=== PATIENT | female | born 1945 | race Caucasian/White ===

== ENCOUNTER 2016-09-10 14:01 | Inpatient (IN) | payer OTHER ==
[2016-09-23] MEDS ORDERED: LOPERAMIDE HCL 2 MG CAP PO PRN (16:51)
[2016-09-23] MEDS: traMADol 50 MG TAB PO PRN (17:46)
[2016-09-23] MEDS: ACETAMINOPHEN 325 MG TAB PO SCH (17:47)
--- NOTE | 2016-09-23 18:21 | GHP ---
[f rep st] HISTORY AND PHYSICAL Post-Admission Physician Evaluation and Rehabilitation Treatment Plan DATE OF ADMISSION: 09/23/2016 REFERRING FACILITY: [facility] REFERRING PHYSICIAN: Dr. Singletary REHABILITATION DIAGNOSIS: Debility status post fall with subdural hematoma and multiple orthopedic fractures. IMPAIRMENT GROUP: 14.2. ETIOLOGICAL DIAGNOSIS: Brain plus multiple fracture/amputation. Date of onset is 09/05/2016. HISTORY OF PRESENT ILLNESS: Mrs. Barrera had an unwitnessed fall onto a concrete floor. It was unknown whether or not she had loss of consciousness. She suffered a left frontal temporal subdural hematoma, a left zygoma fracture, a left manubrium fracture, a left distal clavicle fracture, left rib fractures #2- 5, and a comminuted left iliac bone fracture. She was evaluated at [facility]. She was followed by Neurosurgery and her intracranial bleed did not require surgical evacuation. Her hospital course was complicated by anemia, pain, nausea, and vomiting. She has left upper extremity weightbearing limitations. She was admitted to [facility] on 09/12/2016 as she did not have enough activity tolerance for a more intensive rehabilitation situation. Since then, she has had better pain control and improved activity tolerance and has been authorized by her insurance for admission to acute inpatient rehabilitation facility with a goal of returning to home. STUDIES AND LABS DURING HER HOSPITALIZATION: Imaging showed the injuries as described above. There was a lumbar spine MRI done for a history of sciatica and recurrent sciatic symptoms which showed L5-S1 right-sided foraminal stenosis due to bone sparing and disk material in the lower anterior foramen and facet migration dorsally. Hip x-ray ruled out fracture of the right hip. Urinalysis showed trace ketones, 1+ blood, and 2+ glucose, but was negative for infection. CBC initially had close to normal hemoglobin and hematocrit but an elevated white blood cell count at 19.99. Subsequently after hydration she became anemic. On the day of her discharge, 09/12/2016, her hemoglobin was 9.5 and her hematocrit was 28.2. Coagulation studies revealed normal PT and INR. Serum chemistry revealed normal renal function and electrolytes. Her albumin was initially normal at 4 but decreased to 3.0 on 09/09/2016. She had a corresponding decrease in her serum calcium. Blood sugars were initially elevated but subsequently normalized. PRECAUTIONS: She is a fall risk. She is nonweightbearing on the left upper extremity. ACTIVE COMORBIDITIES: She has no active tier 1, tier 2, or tier 3 comorbidities. PAST MEDICAL HISTORY: 1. Osteoporosis. 2. PTSD. 3. Vitamin D deficiency. 4. Noncardiac chest pain. 5. Sciatica on the right leg. PAST SURGICAL HISTORY: She has had a tonsillectomy. MEDICATIONS: Pre-hospital medications: I do not have a full list of medications she was taking prior to her injury. She was on multiple supplements. Medications prior to current admission: 1. Tramadol. 2. Ondansetron. 3. Acetaminophen. 4. Bisacodyl p.r.n. 5. Loperamide p.r.n. 6. Polyethylene glycol. 7. Gabapentin. 8. Lidocaine patch. 9. Erythromycin eye ointment to the right eye. 10. Cannabidiol ALLERGIES: There are no known drug allergies. FAMILY HISTORY: Noncontributory. PSYCHOSOCIAL HISTORY: She is and remarried. She lives with her family. 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 She is a lifelong nonsmoker and nondrinker. REVIEW OF SYSTEMS: She currently reports that her most painful area is the right sciatic pain which she rates as a 6/10. She additionally has left clavicular pain which she rates at a 5/10. She denies cough or dyspnea but reports that she had hypoxia. Her family has provided a pulse oximeter and she reports that her oxygenation has been as low as 67, but it has been better for the latter part of her stay at the correction facility. She had constipation initially which was treated with laxatives. Then she had diarrhea which has been improving especially over the last day. She denies chest pain or palpitations. Her appetite is improving. She denies vomiting though there was vomiting initially in the hospital before her discharge to the correction facility. She denies dysuria or urinary frequency. She denies joint pain or joint swelling. She denies skin rash or skin breakdown. She is in good spirits. She reports that she has had cognitive fatigue especially in the afternoon and at times gets a headache particularly above the left eye. There is no nausea or vomiting associated with the headache. Other than that, a 10- point review of systems is negative. PHYSICAL EXAM: GENERAL: This is a pale, elderly woman sitting in a wheelchair , cooperative, and in no acute distress. HEENT: Extraocular movements are intact. Pupils are equal, round, and reactive to light and accommodation. Mucous membranes are moist. Dentition is in good condition. NECK: Supple. HEART: There is a regular rate and rhythm with no murmurs, rubs, or gallops. LUNGS: Clear to auscultation bilaterally. ABDOMEN: Soft. Minimally tender at the left lower quadrant. Nondistended with normoactive bowel sounds and no hepatosplenomegaly. EXTREMITIES: There is no cyanosis, clubbing, or edema. Radial and dorsalis pedis pulses are 2+ bilaterally. NEUROLOGIC: She is alert and oriented x3. She is tangential and distractible and she has some word finding difficulties. Cranial nerves 2-12 are grossly intact. There is no focal weakness though full muscle testing was not done of the hip flexors or left upper extremity due to fractures. Sensation is intact to light touch. Deep tendon reflexes are 3+ bilaterally at the biceps, patella and Achilles tendons. There is a minor resting tremor more prominent on the right than the left upper extremity. SKIN: Warm and dry. Current level of function per the preadmission screen. Regarding diet, feeding , and swallowing, she was on regular diet and had supervision. Grooming was done with supervision. Bathing required assistance. Dressing the upper body was accomplished with standby assistance and the lower body with minimal assistance. Toileting required minimal assistance. Bed mobility required minimal assistance. Transfers were accomplished with contact guard assist. She was using a catia walker. Balance was good minus to fair plus. Endurance was fair. She was able to ambulate 60 feet using a catia walker with contact guard assist. Cognition was tested with the SLUMS on which she scored 30/30. Speech therapy was focusing on issues of medication administration and higher level of function. IMPRESSION: Mrs. Capri Barrera is a 70-year-old woman with known osteoporosis which was characterized as severe on a dual energy x-ray absorptiometry study on 01/27/2015. She apparently has been compliant with vitamin D supplementation and other supplements but is generally reluctant to have allopathic medical treatments and so has not been on specific antiresorptive therapy. She has had a previous fall and fracture and she had another fall and multiple fractures which brought her to [facility] on 2015. Additionally, she suffered a subdural hemorrhage which was nonsurgical. During her hospitalization though she was stabilized with regard to pain, nausea , vomiting, and no surgical intervention was needed. She was not able to tolerate sufficient activity to be candidate for inpatient rehabilitation. She has been at a correction facility from 09/12 through 09/23 where she has had improvement in function and in pain control and now is appropriate for inpatient rehabilitation. She will benefit from intensive physical and occupational therapy to optimize her mobility and function with regard to activities of daily living and for speech therapy regarding cognitive concerns status post traumatic brain injury. Hospital problems included pain management, nausea, and vomiting, and at the shelter she has had issues with constipation and then diarrhea following treatment with laxatives. There apparently also was treatment for an eye infection with erythromycin eye ointment but currently she has no symptoms in the right eye. She had anemia and protein calorie malnutrition. Her goal is to discharge home with her family, most likely to her son's home, and with supportive services. For a safe discharge, it is anticipated that she will achieve independence with eating, grooming, and bed mobility. She will need to achieve modified independence for transfers and ambulation using least restrictive device. She may continue to require assistance for dressing and bathing until she has full use of the left upper extremity. It is hoped that she will be able to independently manage her medications. It is expected she will require assistance for shopping and household management. She will have therapy with physical therapy, occupational therapy, and speech therapy for 60 minutes for each discipline per day on 5-7 days of the week. Her expected duration of stay is 7-10 days. It is expected that upon discharge she will continue to benefit from home health services including nursing, occupational therapy, and physical therapy. ASSESSMENT AND PLAN: 1. Debility status post fall, multiple orthopedic fractures, and left brain subdural hematoma. Physical and occupational therapy to optimize mobility and activities of daily living. 2. 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 Speech and language pathology to assess and treat. 3. Pain management for orthopedic fractures including left clavicle, left manubrium, left ribs, and pelvic fracture. She has been reticent to use full dose of tramadol. She reports her pain level is 5/10 in the left clavicle and 6 /10 in the right lower extremity and considers that a pain level of 4/10 would be adequate for her to participate in therapies and sleep. She will be continued on tramadol 50 mg p.o. q.4 hours p.r.n. as well as acetaminophen 650 mg q.6 hours scheduled. She will have pain assessment and medications will be adjusted to achieve adequate pain control. 4. Right sciatic pain with corresponding foraminal stenosis seen on MRI. She was started on a very small dose of gabapentin at 100 mg twice daily at the shelter. I will increase this to 300 mg 3 times daily. She also had a lidocaine patch on the right thigh. She is not clear that it made any difference and I will discontinue the lidocaine patch. 5. Constipation followed by diarrhea. She will be observed. Laxatives will be on a p.r.n. basis including polyethylene glycol and bisacodyl suppository. If she continues to have diarrhea, loperamide will remain available and further investigations will be done as to the etiology of the diarrhea. 6. Osteoporosis. For now she will have calcium and vitamin D supplementation and she can follow up with primary care or with Endocrinology after discharge for more definitive antiresorptive therapy. 7. Conjunctivitis. Was treated at the shelter with erythromycin ophthalmic ointment. She is currently asymptomatic and this will not be continued. 8. Anxiety and posttraumatic stress disorder. She is not on any pharmacotherapy. She will be observed. She requested visits from her psychotherapist and she was informed that anyone is free to visit her whom she would like to see. Consider intervention by COCKTAIL WAITRESS on the unit should her emotional state interfere with her ability to participate in therapy. 9. Anemia and protein calorie malnutrition as well vitamin D deficiency. Labs will be checked regarding these issues to assess her current status. There will be a dietary consult as well. /[id number]/MODL MTDD
[2016-09-23] MEDS: CALCIUM CARB W/VIT D 500 MG TAB PO SCH (21:57)
[2016-09-23] MEDS: GABAPENTIN 300 MG CAP PO SCH (21:57)
[2016-09-24] MEDS: ACETAMINOPHEN 325 MG TAB PO SCH ×5 (01:44→23:57)
[2016-09-24] MEDS: CALCIUM CARB W/VIT D 500 MG TAB PO SCH ×2 (08:19→20:10)
[2016-09-24] MEDS: GABAPENTIN 300 MG CAP PO SCH ×3 (08:19→21:44)
[2016-09-24] MEDS: CHOLECALCIFEROL VIT D3 2,000 UNITS TAB/CAP PO SCH (08:19)
[2016-09-24] MEDS: traMADol 50 MG TAB PO PRN ×3 (08:28→20:14)
[2016-09-24 08:50] LABS: HEMATOCRIT 34.1 % (38.0-47.0); LIPEMIA HEMOLYSIS FLAG 80 (0-99); MEAN CELL HEMOGLOBIN 30.9 pg (27.9-34.1); MEAN CELL HEMOGLOBIN CONCENTR. 32.3 g/dL (32.4-36.7); MEAN CELL VOLUME 95.8 fL (81.5-99.8); PLATELET COUNT 467 10^3/uL (150-400); RED BLOOD CELL COUNT 3.56 10^6/uL (4.18-5.33); RED CELL DISTRIBUTION WIDTH 14.8 % (11.5-15.2)
[2016-09-24 09:07] LABS: ALANINE AMINOTRANSFERASE 49 IU/L (9-52); ALBUMIN 3.8 g/dL (3.5-5.0); ALKALINE PHOSPHATASE 222 IU/L (38-126); ANION GAP 12 mEq/L (8-16); ASPARTATE AMINOTRANSFERASE 45 IU/L (14-46); BILIRUBIN,TOTAL 0.6 mg/dL (0.1-1.4); CALCIUM 9.8 mg/dL (8.5-10.4); CARBON DIOXIDE 26 mEq/l (22-31); CHLORIDE 104 mEq/L (97-110); CREATININE 0.6 mg/dL (0.6-1.0); GLOMERULAR FILTRATION RATE > 60; GLUCOSE 77 mg/dL (70-100); POTASSIUM 4.7 mEq/L (3.5-5.2); SODIUM 142 mEq/L (134-144); TOTAL PROTEIN 6.8 g/dL (6.3-8.2)
--- NOTE | 2016-09-24 09:11 | SOAPPROG ---
SOAP Progress Note Assessment/Plan: Assessment: 70 yo F who suffered multiple fracture and SDH is an unwitnessed fall 2015, with osteoporosis: * Debility status post fall, multiple orthopedic fractures, and left brain subdural hematoma. Physical and occupational therapy to optimize mobility and activities of daily living. 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 Speech and language pathology to assess and treat. * Pain management for orthopedic fractures including left clavicle, left manubrium, left ribs, and pelvic fracture. Adequate pain control with tramadol 50 mg p.o. q.4 hours p.r.n. as well as acetaminophen 650 mg q.6 hours scheduled. She will have pain assessment and medications will be adjusted to achieve adequate pain control. * Right sciatic pain with corresponding foraminal stenosis seen on MRI. Improved on 300 mg 3 times daily, increased from 100 mg BID dose at the SNF prior to admission. * Constipation followed by diarrhea. She will be observed. Laxatives will be on a p.r.n. basis including polyethylene glycol and bisacodyl suppository. If she continues to have diarrhea, loperamide will remain available and further investigations will be done as to the etiology of the diarrhea. * Osteoporosis. Adequate vitamin D supplementation on labs 09/24/16. Discussed initiating bisphosphonate; she prefers to discuss it with PCP. * Anxiety and posttraumatic stress disorder. She is not on any pharmacotherapy. She will be observed. She requested visits from her psychotherapist and she was informed that anyone is free to visit her whom she would like to see. Consider intervention by RETURNS SUPERVISOR on the unit should her emotional state interfere with her ability to participate in therapy. * Anemia, improving on labs 09/24/16. Repeat head CT and follow-up with Neurosurgery Dr. Nolasco week of 09/26/16. PCP is Praveen Baron. 09/24/16 10:18 Subjective: Slept well and sciatic pain improved on increased gabapentin dose. Has not noted any adverse effects. No f/c, cough, dyspnea, n/v/c/d. Objective: Vital Signs Temp Pulse Resp BP Pulse Ox 36.4 C 58 L 14 133/67 H 96 09/24/16 06:51 09/24/16 06:51 09/24/16 06:51 09/24/16 06:51 09/24/16 06:51 Laboratory Results 09/24/16 06:00 09/24/16 06:00 09/23/16 09/24/16 09/25/16 05:59 05:59 05:59 Output Total 1300 300 Balance -1300 -300 Physical Exam - Physical Exam General Appearance: WD/WN, alert, no apparent distress, thin Respiratory: normal breath sounds, No crackles, No rhonchi, No wheezing Cardiac/Chest: regular rate, rhythm, No edema Skin: normal color, warm/dry Neuro/Psych: no motor/sensory deficits, alert, normal mood/affect, oriented x 3 ICD10 Worksheet Patient Problems: Problems Problem Status Diagnosed Anemia due to blood loss, acute Acute Chest pain Acute Clavicle fracture Acute Fall (on) (from) other stairs and steps, initial encounter Acute Pelvis fracture Acute Rib fracture Acute Subdural hemorrhage Acute
[2016-09-24 09:23] LABS: VITAMIN D 25-HYDROXY TOTAL 58.3 ng/mL (30-100)
[2016-09-24 10:38] LABS: CALCIUM 9.9 ng/dL (8.5-10.4); CREATININE 0.6 mg/dL (0.6-1.0)
[2016-09-24 10:47] LABS: PTH INTACT NO MINERALS 27.9 pg/ml (10.8-79.4)
[2016-09-25] MEDS: traMADol 50 MG TAB PO PRN ×4 (02:25→21:10)
[2016-09-25] MEDS: ACETAMINOPHEN 325 MG TAB PO SCH ×4 (05:59→23:45)
[2016-09-25] MEDS: CHOLECALCIFEROL VIT D3 2,000 UNITS TAB/CAP PO SCH (09:32)
[2016-09-25] MEDS: GABAPENTIN 300 MG CAP PO SCH ×3 (09:32→21:16)
[2016-09-25] MEDS: CALCIUM CARB W/VIT D 500 MG TAB PO SCH ×2 (09:32→21:15)
--- NOTE | 2016-09-25 12:58 | SOAPPROG ---
SOAP Progress Note Assessment/Plan: Assessment: 70 yo F who suffered multiple fracture and SDH is an unwitnessed fall 2015, with osteoporosis: * Debility status post fall, multiple orthopedic fractures, and left brain subdural hematoma. Physical and occupational therapy to optimize mobility and activities of daily living. 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 Speech and language pathology to assess and treat. Marked emotional lability. * Pain management for orthopedic fractures including left zygoma, left clavicle , left manubrium, left ribs, and left pelvic fracture. Adequate pain control with tramadol 50 mg p.o. q.4 hours p.r.n. as well as acetaminophen 650 mg q.6 hours scheduled. She will have pain assessment and medications will be adjusted to achieve adequate pain control. * Right sciatic pain with corresponding foraminal stenosis seen on MRI, R>L. No benefit on Neurontin 300 mg TID, increased from 100 mg BID dose at the SNF prior to admission. * Constipation followed by diarrhea. She will be observed. Laxatives will be on a p.r.n. basis including polyethylene glycol and bisacodyl suppository. If she continues to have diarrhea, loperamide will remain available and further investigations will be done as to the etiology of the diarrhea. * Osteoporosis. Adequate vitamin D supplementation on labs 09/24/16. Discussed initiating bisphosphonate; she prefers to discuss it with PCP. * Anxiety and posttraumatic stress disorder. She is not on any pharmacotherapy. She will be observed. She requested visits from her psychotherapist and she was informed that anyone is free to visit her whom she would like to see. Consider intervention by MANAGER PAPER on the unit should her emotional state interfere with her ability to participate in therapy. * Anemia, improving on labs 09/24/16. Repeat head CT and follow-up with Neurosurgery Dr. Nolasco week of 09/26/16. PCP is Praveen Baron. Plan: Cont Dr Ryan rehab treatment plan 09/25/16 13:09 Subjective: Still with significant R buttock/sciatic like pain, impeding rest. No significant back pain. L jaw pain and clicking L Clavicle/rib pain and limited mobility Tearfull No F/C/CP/SOB/N/V Objective: Vital Signs Temp Pulse Resp BP Pulse Ox 36.6 C 57 L 14 118/62 93 09/25/16 06:30 09/25/16 09:28 09/25/16 06:30 09/25/16 09:28 09/25/16 09:28 Laboratory Results 09/24/16 06:00 09/24/16 06:00 09/24/16 09/25/16 09/26/16 05:59 05:59 05:59 Intake Total 100 100 Output Total 1300 750 Balance -1300 -650 100 Physical Exam - Physical Exam General Appearance: alert, mild distress EENT: other (L TMJ area pain, crepitus, restricted ROM (2/2 local trauma, fracture of L Zygomatic arch), R/O TMJ disruption) Neck: supple Respiratory: lungs clear Cardiac/Chest: regular rate, rhythm Abdomen: normal bowel sounds, soft Back: Normal inspection Skin: normal color, warm/dry, No rash Extremities: normal range of motion (markedly restricted R hip ROM, positive SLR , local soft tissue myofacial changes), No pedal edema, No calf tenderness Neuro/Psych: alert, other (no acute changes), No normal mood/affect (labile) ICD10 Worksheet Patient Problems: Problems Problem Status Diagnosed Anemia due to blood loss, acute Acute Chest pain Acute Clavicle fracture Acute Fall (on) (from) other stairs and steps, initial encounter Acute Pelvis fracture Acute Rib fracture Acute Subdural hemorrhage Acute
[2016-09-26] MEDS: ACETAMINOPHEN 325 MG TAB PO SCH ×3 (05:22→18:01)
[2016-09-26] MEDS: traMADol 50 MG TAB PO PRN ×4 (07:25→20:03)
[2016-09-26] MEDS: CHOLECALCIFEROL VIT D3 2,000 UNITS TAB/CAP PO SCH (07:25)
[2016-09-26] MEDS: GABAPENTIN 300 MG CAP PO SCH ×3 (07:25→20:04)
[2016-09-26] MEDS: CALCIUM CARB W/VIT D 500 MG TAB PO SCH ×2 (07:26→20:03)
[2016-09-26] MEDS ORDERED: LIDOCAINE 1% 5 ML SDV IF ONE (09:51)
[2016-09-26] MEDS ORDERED: TRIAMCINOLONE ACETONIDE 40 MG/ML VIAL IM ONE (09:51)
[2016-09-26] MEDS ORDERED: LIDOCAINE 1% *Not for Epidural 20 ML MDV IF ONE (10:00)
[2016-09-26] MEDS: LIDOCAINE 5% 1 EA PATCH TD SCH (10:55)
[2016-09-26] MEDS ORDERED: METHOCARBAMOL 750 MG TAB PO STA (12:19)
--- NOTE | 2016-09-26 12:19 | SOAPPROG ---
SOAP Progress Note Assessment/Plan: Assessment: 70 yo F who suffered multiple fracture and SDH is an unwitnessed fall 2015, with osteoporosis: * Debility status post fall, multiple orthopedic fractures, and left brain subdural hematoma. Physical and occupational therapy to optimize mobility and activities of daily living. * Cognitive impairment/Anxiety following traumatic brain injury. Speech and language pathology to assess and treat. Marked emotional lability. * Right sciatic pain with corresponding foraminal stenosis seen on MRI, R>L. No benefit on Neurontin 300 mg TID, increased from 100 mg BID dose at the SNF prior to admission. * Pain management for orthopedic fractures including left zygoma, left clavicle , left manubrium, left ribs, and left pelvic fracture. In-adequate pain control with tramadol 50 mg p.o. q.4 hours p.r.n. as well as acetaminophen 650 mg q.6 hours scheduled, No benefit on Neurontin 300 mg TID. No benefit with R Trochanteric bursa injection. Trial low dose robaxin, on schedule. She will have pain assessment and medications will be adjusted to achieve adequate pain control. * Constipation followed by diarrhea. She will be observed. Laxatives will be on a p.r.n. basis including polyethylene glycol and bisacodyl suppository. If she continues to have diarrhea, loperamide will remain available and further investigations will be done as to the etiology of the diarrhea. * Osteoporosis. Adequate vitamin D supplementation on labs 09/24/16. Discussed initiating bisphosphonate; she prefers to discuss it with PCP. * Anxiety and posttraumatic stress disorder. She is not on any pharmacotherapy. She will be observed. She requested visits from her psychotherapist and she was informed that anyone is free to visit her whom she would like to see. Consider intervention by POWER PLANT OPERATORS SUPERVISOR on the unit should her emotional state interfere with her ability to participate in therapy. * Anemia, improving on labs 09/24/16. Repeat head CT and follow-up with Neurosurgery Dr. Nolasco week of 09/26/16. PCP is Praveen Baron. Plan: Cont Dr Ryan rehab treatment plan 09/26/16 12:15 09/26/16 12:17 Subjective: Very limited by Severe R posterolateral hip pain. Less significant R LBP. The L jaw, shoulder, ribs and pelvis less problematic, relative to the R hip No F/C/CP/SOB/N/V/D/C Objective: Vital Signs Temp Pulse Resp BP Pulse Ox 36.8 C 54 L 16 107/61 92 09/26/16 06:34 09/26/16 06:34 09/26/16 06:34 09/26/16 06:34 09/26/16 06:34 Laboratory Results 09/24/16 06:00 09/24/16 06:00 09/25/16 09/26/16 09/27/16 05:59 05:59 05:59 Intake Total 100 300 118 Output Total 750 300 Balance -650 0 118 Physical Exam - Physical Exam General Appearance: alert, moderate distress Neck: supple Respiratory: lungs clear Cardiac/Chest: regular rate, rhythm Abdomen: normal bowel sounds, soft Extremities: No normal range of motion (limited B hip, knee, SLR and L shoulder ROM), No pedal edema, No calf tenderness Neuro/Psych: alert, normal mood/affect, oriented x 3, motor weakness, cognition abnormalities, other (marked anxiety 2/2 pain) ICD10 Worksheet Patient Problems: Problems Problem Status Diagnosed Anemia due to blood loss, acute Acute Chest pain Acute Clavicle fracture Acute Fall (on) (from) other stairs and steps, initial encounter Acute Pelvis fracture Acute Rib fracture Acute Subdural hemorrhage Acute
[2016-09-26] MEDS: POLYETHYLENE GLYCOL 3350 17 GM PKT PO PRN (15:52)
[2016-09-26] MEDS: METHOCARBAMOL 500 MG TAB PO SCH ×2 (15:52→20:04)
[2016-09-27] MEDS: ACETAMINOPHEN 325 MG TAB PO SCH ×4 (00:17→16:45)
[2016-09-27] MEDS: traMADol 50 MG TAB PO PRN ×6 (00:17→20:02)
[2016-09-27] MEDS: LIDOCAINE 5% 1 EA PATCH TD SCH ×3 (00:18→21:30)
[2016-09-27] MEDS: POLYETHYLENE GLYCOL 3350 17 GM PKT PO PRN (05:24)
[2016-09-27] MEDS: CALCIUM CARB W/VIT D 500 MG TAB PO SCH ×2 (08:46→21:29)
[2016-09-27] MEDS: CHOLECALCIFEROL VIT D3 2,000 UNITS TAB/CAP PO SCH (08:47)
[2016-09-27] MEDS: METHOCARBAMOL 500 MG TAB PO SCH ×3 (08:47→21:29)
[2016-09-27] MEDS: GABAPENTIN 300 MG CAP PO SCH (08:47)
--- NOTE | 2016-09-27 14:38 | PDOREHIP ---
Admission [facility] - Admission - 3 Day Assessment Period Admission Date/Day 1: 09/23/16 Day 2: 09/24/16 Day 3: 09/25/16 - Active Diagnoses Comorbidities and Co-existing Conditions at Admission: 26977. None of the Above - Skin Conditions Unhealed Pressure Ulcer (1 or more/Stage 1 or >)-Admission: 0. No
--- NOTE | 2016-09-27 14:50 | SOAPPROG ---
SOAP Progress Note Assessment/Plan: Assessment: 70 yo F who suffered multiple fracture and SDH is an unwitnessed fall 2015, with osteoporosis: * Debility status post fall, multiple orthopedic fractures, and left brain subdural hematoma. Initial FIM 77 on 09/27/16. Walked 60' with hemiwalker. LB dressing min - mod A; bathing min A. Continue physical and occupational therapy to optimize mobility and activities of daily living. * Cognitive impairment. Mild word-finding difficulty; mod deficits to exec fn, working memory, attention, problem solving, speed of processing. Continue GRAVITY PROSPECTING OPERATOR. * Pain management for orthopedic fractures including left clavicle, left manubrium, left ribs, and pelvic fracture. Adequate pain control. * Right sciatic pain with corresponding foraminal stenosis seen on MRI. Increase gabapentin form 300 mg 3 times daily to 400 mg TID. Increase tramadol from 50 mg Q 4 hours to 100 mg Q 6 hours. Encourage ambulation. * SDH. Repeat head CT per Neurosurgery scheduled for 09/28/16 and follow-up with Dr. Nolasco 09/30/16 at 11:20. * Osteoporosis. Adequate vitamin D supplementation on labs 09/24/16. Discussed initiating bisphosphonate; she prefers to discuss it with PCP. * Anxiety and posttraumatic stress disorder. She is not on any pharmacotherapy. She will be observed. She requested visits from her psychotherapist and she was informed that anyone is free to visit her whom she would like to see. Consider intervention by FERRYBOAT HELPER on the unit should her emotional state interfere with her ability to participate in therapy. * Anemia, improving on labs 09/24/16. Repeat head CT and follow-up with Neurosurgery Dr. Nolasco week of 09/26/16. PCP is Praveen Baron. Attended staffing, 15 min. D/W case mgmt, PT, OT, GRAVITY PROSPECTING OPERATOR, nursing. Unclear disposition with no home of her own in [place]. May discharge to daughter in [place]. Tentative discharge date 10/04/16. 09/27/16 15:05 Subjective: C/O R gluteal pain, radiates into posterior thigh. Worst with sitting, better standing or supine. Improved with soft tissue work per PT yesterday, worse after soft tissue work per PT today. Slept well. No f/c, cough, dyspnea, n/v/c/d. Objective: Vital Signs Temp Pulse Resp BP Pulse Ox 36.8 C 61 15 138/76 H 96 09/27/16 05:16 09/27/16 05:16 09/27/16 05:16 09/27/16 05:16 09/27/16 05:16 Laboratory Results 09/24/16 06:00 09/24/16 06:00 09/26/16 09/27/16 09/28/16 05:59 05:59 05:59 Intake Total 300 958 520 Output Total 300 Balance 0 958 520 - Time Spent With Patient Time Spent With Patient: Greater than 35 minutes floor time today, including more than 50% of time in coordination of care during staffing, and counseling patient. Physical Exam - Physical Exam General Appearance: WD/WN, alert, mild distress Respiratory: No respiratory distress, No accessory muscle use Skin: normal color, warm/dry Extremities: normal range of motion, No pedal edema Neuro/Psych: alert, normal mood/affect, oriented x 3, other (SLR + with pain into thigh. LLE with normal sensation, no weakness, DTRs 2+ patella, achilles.) ICD10 Worksheet Patient Problems: Problems Problem Status Diagnosed Anemia due to blood loss, acute Acute Chest pain Acute Clavicle fracture Acute Fall (on) (from) other stairs and steps, initial encounter Acute Pelvis fracture Acute Rib fracture Acute Subdural hemorrhage Acute
[2016-09-27] MEDS: GABAPENTIN 400 MG CAP PO SCH ×2 (16:44→21:30)
[2016-09-27] MEDS: BISACODYL 10 MG SUPP PR PRN (17:32)
[2016-09-28] MEDS: traMADol 50 MG TAB PO PRN ×5 (01:03→20:01)
[2016-09-28] MEDS: ACETAMINOPHEN 325 MG TAB PO SCH ×4 (01:03→18:09)
[2016-09-28] MEDS: ONDANSETRON DISINTEGRATING 4 MG TAB PO PRN ×3 (08:25→17:56)
[2016-09-28] MEDS: GABAPENTIN 400 MG CAP PO SCH ×3 (08:38→21:10)
[2016-09-28] MEDS: LIDOCAINE 5% 1 EA PATCH TD SCH ×2 (08:40→21:11)
[2016-09-28] MEDS ORDERED: METHOCARBAMOL 500 MG TAB PO PRN (09:49)
--- NOTE | 2016-09-28 09:49 | SOAPPROG ---
SOAP Progress Note Assessment/Plan: Assessment: 70 yo F who suffered multiple fractures and SDH in an unwitnessed fall 2015, with osteoporosis: * Debility status post fall, multiple orthopedic fractures, and left brain subdural hematoma. Initial FIM 77 on 09/27/16. Walked 60' with hemiwalker. LB dressing min - mod A; bathing min A. Continue physical and occupational therapy to optimize mobility and activities of daily living. * Cognitive impairment. Mild word-finding difficulty; mod deficits to exec fn, working memory, attention, problem solving, speed of processing. Continue BUSINESS SERVICES SALES AGENT. * Pain management for orthopedic fractures including left clavicle, left manubrium, left ribs, and pelvic fracture. Adequate pain control. * Right sciatic pain with corresponding foraminal stenosis seen on MRI. Increase gabapentin form 300 mg 3 times daily to 400 mg TID. Increase tramadol from 50 mg Q 4 hours to 100 mg Q 6 hours. Encourage ambulation. * Dry heaves today 09/28/16. Simplify meds: will change methocarbamol to PRN. Tramadol is the most likely med to cause N/V but she reports she has tolerated it without problems currently and in the past. Head CT today shows SDH completely cleared, so central etiology of vomiting is very unlikely. Continue ondansetron PRN. * SDH. Repeat head CT per Neurosurgery scheduled for 09/28/16 and follow-up with Dr. Nolasco 09/30/16 at 11:20. * Osteoporosis. Adequate vitamin D supplementation on labs 09/24/16. Discussed initiating bisphosphonate; she prefers to discuss it with PCP. * Anxiety and posttraumatic stress disorder. She is not on any pharmacotherapy. She will be observed. She requested visits from her psychotherapist and she was informed that anyone is free to visit her whom she would like to see. Consider intervention by STRATIGRAPHY TEACHER on the unit should her emotional state interfere with her ability to participate in therapy. * Anemia, improving on labs 09/24/16. Follow-up with Neurosurgery Dr. Nolasco week of 09/30/16. PCP is Praveen Baron. Likely SNF discharge as she has no resources for assistance locally and [place] can't take care of her. Tentative discharge date 10/04/16. 09/28/16 19:25 Subjective: Reports dryheavfes this moring. Sayss he walked to the dining room for breakfast, had onset of sciatic symptoms when she sat, and had dry heaves. Shewas given ondansetron, which has helped. She is hungry. Sciatic pain 5/10 in intensity. Denies f/c, cough/dyspnea. Objective: Vital Signs Temp Pulse Resp BP Pulse Ox 36.9 C 68 18 135/83 H 91 L 09/27/16 20:00 09/28/16 01:07 09/27/16 20:00 09/27/16 20:00 09/28/16 01:07 Laboratory Results 09/24/16 06:00 09/24/16 06:00 09/27/16 09/28/16 09/29/16 05:59 05:59 05:59 Intake Total 958 1420 Output Total 1000 Balance 958 420 Physical Exam - Physical Exam General Appearance: WD/WN, alert, no apparent distress Respiratory: No respiratory distress, No accessory muscle use Abdomen: normal bowel sounds, non-tender, soft, No distended, No guarding, No mass Skin: normal color, warm/dry Neuro/Psych: no motor/sensory deficits, alert, normal mood/affect, oriented x 3 ICD10 Worksheet Patient Problems: Problems Problem Status Diagnosed Anemia due to blood loss, acute Acute Chest pain Acute Clavicle fracture Acute Fall (on) (from) other stairs and steps, initial encounter Acute Pelvis fracture Acute Rib fracture Acute Subdural hemorrhage Acute
[2016-09-28] MEDS: METHOCARBAMOL 500 MG TAB PO SCH (10:17)
--- NOTE | 2016-09-28 12:05 | CT ---
CT Head (Without Contrast) September 28, 2016 Indication: Follow up subdural hematoma. Technique: Standard noncontrast head CT protocol utilizing 5 mm thick collimated slices and field of view of 23 cm. Dose reduction techniques were utilized. Comparison: CT head dated September 10, 2016 Findings: The subdural hematoma along the left cerebral convexity and cerebellar tentorium has comple tely resolved since 3 weeks prior. No new extra-axial blood or intraparenchymal hemorrhage. The ventr icular system is normal caliber and midline. No evidence of ischemia. The bones are normal. The paran talat sinuses are clear. Impression: 1. Completely resolved left subdural hematoma since 3 weeks prior. 2. No new intracranial hemorrhage, mass effect, or acute intracranial process.
[2016-09-28] MEDS: CALCIUM CARB W/VIT D 500 MG TAB PO SCH ×2 (15:47→21:10)
[2016-09-28] MEDS: CHOLECALCIFEROL VIT D3 2,000 UNITS TAB/CAP PO SCH (15:47)
[2016-09-29] MEDS: ACETAMINOPHEN 325 MG TAB PO SCH ×4 (00:40→17:17)
[2016-09-29] MEDS: traMADol 50 MG TAB PO PRN ×3 (00:41→11:29)
[2016-09-29] MEDS: ONDANSETRON DISINTEGRATING 4 MG TAB PO PRN ×2 (07:16→11:38)
[2016-09-29] MEDS: CHOLECALCIFEROL VIT D3 2,000 UNITS TAB/CAP PO SCH (08:41)
[2016-09-29] MEDS: CALCIUM CARB W/VIT D 500 MG TAB PO SCH ×3 (08:41→21:48)
[2016-09-29] MEDS: GABAPENTIN 400 MG CAP PO SCH ×3 (08:41→21:47)
[2016-09-29] MEDS: LIDOCAINE 5% 1 EA PATCH TD SCH ×2 (09:02→21:47)
--- NOTE | 2016-09-29 14:41 | SOAPPROG ---
SOAP Progress Note Assessment/Plan: Assessment: 70 yo F who suffered multiple fractures and SDH in an unwitnessed fall 2015, with osteoporosis: * Debility status post fall, multiple orthopedic fractures, and left brain subdural hematoma. SABRINA MIGUEL. Initial FIM 77 on 09/27/16. Walked 60' with hemiwalker. LB dressing min - mod A; bathing min A. Continue physical and occupational therapy to optimize mobility and activities of daily living. * Cognitive impairment. Mild word-finding difficulty; mod deficits to exec fn, working memory, attention, problem solving, speed of processing. Continue FEED HANDLER. * Pain management for orthopedic fractures including left clavicle, left manubrium, left ribs, and pelvic fracture. Adequate pain control. * Right sciatic pain with corresponding foraminal stenosis seen on MRI. Increased gabapentin form 300 mg 3 times daily to 400 mg TID on 09/27/16. Increased tramadol from 50 mg Q 4 hours to 100 mg Q 6 hours on 09/27/16. Encourage ambulation. * Dry heaves today 09/28/16. Simplify meds: will change methocarbamol to PRN. Improved today 09/29/16. Tramadol is the most likely med to cause N/V but she reports she has tolerated it without problems currently and in the past. Head CT 09/28/16 shows SDH completely cleared, so central etiology of vomiting is very unlikely. Continue ondansetron PRN. * SDH. Follow-up with Dr. Nolasco 09/30/16 at 11:20. * Osteoporosis. Adequate vitamin D supplementation on labs 09/24/16. Discussed initiating bisphosphonate; she prefers to discuss it with PCP. * Anxiety and posttraumatic stress disorder. She is not on any pharmacotherapy. She will be observed. She requested visits from her psychotherapist and she was informed that anyone is free to visit her whom she would like to see. Consider intervention by RESILIENT TILE INSTALLER on the unit should her emotional state interfere with her ability to participate in therapy. * Anemia, improving on labs 09/24/16. Follow-up with Neurosurgery Dr. Nolasco 09/30/16. PCP is Praveen Baron. Likely SNF discharge as she has no resources for assistance locally and daughter in [place] can't take care of her. Tentative discharge date 10/04/16. 01/05/17 14:36 Subjective: Feeling better today. NO n/v. Took ondansetron this morning to prevent. Has been active in therapies today and reports R buttock/thigh pain at 3/10, better than previous days. Slept well. No f/c, cough/dyspnea. Appetite improved. Objective: Vital Signs Temp Pulse Resp BP Pulse Ox 36.9 C 55 L 18 108/57 L 93 09/29/16 05:31 09/29/16 05:31 09/29/16 05:31 09/29/16 05:31 09/29/16 05:31 Laboratory Results 09/24/16 06:00 09/24/16 06:00 09/28/16 09/29/16 09/30/16 05:59 05:59 05:59 Intake Total 1420 1143 250 Output Total 1000 200 Balance 420 943 250 Physical Exam - Physical Exam General Appearance: WD/WN, alert, no apparent distress Respiratory: No respiratory distress, No accessory muscle use Skin: normal color, warm/dry Neuro/Psych: no motor/sensory deficits, alert, normal mood/affect, oriented x 3 , other (resting tremor R hand) ICD10 Worksheet Patient Problems: Problems Problem Status Diagnosed Anemia due to blood loss, acute Acute Chest pain Acute Clavicle fracture Acute Fall (on) (from) other stairs and steps, initial encounter Acute Pelvis fracture Acute Rib fracture Acute Subdural hemorrhage Acute
[2016-09-30] MEDS: ACETAMINOPHEN 325 MG TAB PO SCH ×4 (00:12→18:19)
[2016-09-30] MEDS: traMADol 50 MG TAB PO PRN ×4 (00:12→20:39)
[2016-09-30] MEDS: ONDANSETRON DISINTEGRATING 4 MG TAB PO PRN (07:47)
[2016-09-30] MEDS: CALCIUM CARB W/VIT D 500 MG TAB PO SCH ×3 (08:27→20:41)
[2016-09-30] MEDS: GABAPENTIN 400 MG CAP PO SCH ×3 (08:28→20:38)
[2016-09-30] MEDS: CHOLECALCIFEROL VIT D3 2,000 UNITS TAB/CAP PO SCH (08:28)
[2016-09-30] MEDS: LIDOCAINE 5% 1 EA PATCH TD SCH ×2 (08:41→20:38)
--- NOTE | 2016-09-30 09:57 | SOAPPROG ---
SOAP Progress Note Assessment/Plan: Assessment: 70 yo F who suffered multiple fractures and SDH in an unwitnessed fall 2015, with osteoporosis: * Debility status post fall, multiple orthopedic fractures, and left brain subdural hematoma. SABRINA MIGUEL. Initial FIM 77 on 09/27/16. Walked 60' with hemiwalker. LB dressing min - mod A; bathing min A. Continue physical and occupational therapy to optimize mobility and activities of daily living. * Cognitive impairment. Mild word-finding difficulty; mod deficits to exec fn, working memory, attention, problem solving, speed of processing. Continue PSS DELIVERY PROFESSIONAL. * Pain management for orthopedic fractures including left clavicle, left manubrium, left ribs, and pelvic fracture. Adequate pain control. * Right sciatic pain with corresponding foraminal stenosis seen on MRI. Increased gabapentin form 300 mg 3 times daily to 400 mg TID on 09/27/16. Increased tramadol from 50 mg Q 4 hours to 100 mg Q 6 hours on 09/27/16. Encourage ambulation. * Dry heaves today 09/28/16. Simplify meds: will change methocarbamol to PRN. Improved today 09/29/16. Tramadol is the most likely med to cause N/V but she reports she has tolerated it without problems currently and in the past. Head CT 09/28/16 shows SDH completely cleared, so central etiology of vomiting is very unlikely. Continue ondansetron PRN. * SDH. Follow-up with Dr. Nolasco today 09/30/16 at 11:20. * Osteoporosis. Adequate vitamin D supplementation on labs 09/24/16. Discussed initiating bisphosphonate; she prefers to discuss it with PCP. * Anxiety and posttraumatic stress disorder. She is not on any pharmacotherapy. She will be observed. She requested visits from her psychotherapist and she was informed that anyone is free to visit her whom she would like to see. Consider intervention by INTERACTIVE VIDEO TECHNICIAN on the unit should her emotional state interfere with her ability to participate in therapy. * Anemia, improving on labs 09/24/16. PCP is Praveen Baron. Likely SNF discharge as she has no resources for assistance locally and [place] in [place] can't take care of her. Tentative discharge date 10/04/16. 09/30/16 09:56 Subjective: Walked to breakfast then developed R buttock/hamstring pain while sitting. O/W w/out complaint, slept well, no f/c, no dyspnea/cough, no n/v/c/d. Objective: Vital Signs Temp Pulse Resp BP Pulse Ox 36.6 C 65 16 114/70 92 09/30/16 05:39 09/30/16 05:39 09/30/16 05:39 09/30/16 05:39 09/30/16 05:39 Laboratory Results 09/24/16 06:00 09/24/16 06:00 09/29/16 09/30/16 10/01/16 05:59 05:59 05:59 Intake Total 1143 1950 420 Output Total 200 1300 Balance 943 650 420 Physical Exam - Physical Exam General Appearance: WD/WN, alert, no apparent distress Respiratory: No respiratory distress, No accessory muscle use Skin: normal color, warm/dry Neuro/Psych: no motor/sensory deficits, alert, normal mood/affect, oriented x 3 ICD10 Worksheet Patient Problems: Problems Problem Status Diagnosed Anemia due to blood loss, acute Acute Chest pain Acute Clavicle fracture Acute Fall (on) (from) other stairs and steps, initial encounter Acute Pelvis fracture Acute Rib fracture Acute Subdural hemorrhage Acute
[2016-10-01] MEDS: ACETAMINOPHEN 325 MG TAB PO SCH ×5 (00:39→23:56)
[2016-10-01] MEDS: traMADol 50 MG TAB PO PRN ×2 (00:40→06:05)
[2016-10-01] MEDS: ONDANSETRON DISINTEGRATING 4 MG TAB PO PRN ×2 (08:26→17:06)
[2016-10-01] MEDS: CHOLECALCIFEROL VIT D3 2,000 UNITS TAB/CAP PO SCH (09:52)
[2016-10-01] MEDS: GABAPENTIN 400 MG CAP PO SCH ×3 (09:52→19:44)
[2016-10-01] MEDS: CALCIUM CARB W/VIT D 500 MG TAB PO SCH ×2 (09:52→19:44)
[2016-10-01] MEDS: LIDOCAINE 5% 1 EA PATCH TD SCH ×2 (09:53→19:44)
--- NOTE | 2016-10-01 15:39 | SOAPPROG ---
SOAP Progress Note Assessment/Plan: 70 yo F who suffered multiple fractures and SDH in an unwitnessed fall 2015, with osteoporosis: * Debility status post fall, multiple orthopedic fractures, and left brain subdural hematoma. SABRINA MIGUEL. Initial FIM 77 on 09/27/16. Walked 60' with hemiwalker. LB dressing min - mod A; bathing min A. Continue physical and occupational therapy to optimize mobility and activities of daily living. * Cognitive impairment. Mild word-finding difficulty; mod deficits to exec fn, working memory, attention, problem solving, speed of processing. Continue ACCOUNTS RECEIVABLE EXECUTIVE. * Pain management for orthopedic fractures including left clavicle, left manubrium, left ribs, and pelvic fracture. Adequate pain control. * Right sciatic pain with corresponding foraminal stenosis seen on MRI. Increased gabapentin form 300 mg 3 times daily to 400 mg TID on 09/27/16. Increased tramadol from 50 mg Q 4 hours to 100 mg Q 6 hours on 09/27/16. Encourage ambulation. Will add Celebrex 100BID prn (given resolution of SDH, essentially no RESENDIZ-1 effects, and persistent GI effects from tramadol) * Dry heaves today 09/28/16. Simplify meds: will change methocarbamol to PRN. Improved today 09/29/16. Tramadol is the most likely med to cause N/V but she reports she has tolerated it without problems currently and in the past. Head CT 09/28/16 shows SDH completely cleared, so central etiology of vomiting is very unlikely. Continue ondansetron PRN. * SDH. Follow-up with Dr. Nolasco today 09/30/16 at 11:20. * Osteoporosis. Adequate vitamin D supplementation on labs 09/24/16. Discussed initiating bisphosphonate; she prefers to discuss it with PCP. * Anxiety and posttraumatic stress disorder. She is not on any pharmacotherapy. She will be observed. She requested visits from her psychotherapist and she was informed that anyone is free to visit her whom she would like to see. Consider intervention by ART INSTRUCTOR on the unit should her emotional state interfere with her ability to participate in therapy. * Anemia, improving on labs 09/24/16. PCP is Praveen Baron. Likely SNF discharge as she has no resources for assistance locally and [place] can't take care of her. Tentative discharge date 10/04/16. 10/01/16 15:39 Subjective: No acute events. Notes ongoing sciatic pain that is "horrible" during therapy. Requesting additional pain meds. Still with intermittent "dry-heaving" Otherwise without complaint. Objective: Vital Signs Temp Pulse Resp BP Pulse Ox 36.8 C 55 L 15 130/71 H 97 10/01/16 06:11 10/01/16 06:11 10/01/16 06:11 10/01/16 06:11 10/01/16 06:11 Laboratory Results 09/24/16 06:00 09/24/16 06:00 09/30/16 10/01/16 10/02/16 05:59 05:59 05:59 Intake Total 1950 720 754 Output Total 1300 40 Balance 650 680 754 - Pending Discharge Pending Discharge Within 24 Hours: No Pending Discharge Within 48 Hours: No Physical Exam - Physical Exam General Appearance: alert, no apparent distress Neck: supple Respiratory: lungs clear Cardiac/Chest: regular rate, rhythm Abdomen: non-tender, soft Skin: normal color Neuro/Psych: alert, normal mood/affect, oriented x 3 ICD10 Worksheet Patient Problems: Problems Problem Status Diagnosed Anemia due to blood loss, acute Acute Chest pain Acute Clavicle fracture Acute Fall (on) (from) other stairs and steps, initial encounter Acute Pelvis fracture Acute Rib fracture Acute Subdural hemorrhage Acute
[2016-10-01] MEDS: POLYETHYLENE GLYCOL 3350 17 GM PKT PO PRN (17:12)
[2016-10-02] MEDS: ACETAMINOPHEN 325 MG TAB PO SCH ×4 (06:20→23:51)
[2016-10-02] MEDS: ONDANSETRON DISINTEGRATING 4 MG TAB PO PRN (07:53)
[2016-10-02] MEDS: CALCIUM CARB W/VIT D 500 MG TAB PO SCH ×2 (09:18→21:36)
[2016-10-02] MEDS: CHOLECALCIFEROL VIT D3 2,000 UNITS TAB/CAP PO SCH (09:19)
[2016-10-02] MEDS: LIDOCAINE 5% 1 EA PATCH TD SCH ×2 (09:19→21:35)
[2016-10-02] MEDS: GABAPENTIN 400 MG CAP PO SCH ×3 (09:19→21:35)
--- NOTE | 2016-10-02 12:35 | SOAPPROG ---
SOAP Progress Note Assessment/Plan: 70 yo F who suffered multiple fractures and SDH in an unwitnessed fall 2015, with osteoporosis: * Debility status post fall, multiple orthopedic fractures, and left brain subdural hematoma. SABRINA MIGUEL. Initial FIM 77 on 09/27/16. Walked 60' with hemiwalker. LB dressing min - mod A; bathing min A. Continue physical and occupational therapy to optimize mobility and activities of daily living. * Cognitive impairment. Mild word-finding difficulty; mod deficits to exec fn, working memory, attention, problem solving, speed of processing. Continue REALTIME REPORTER. * Pain management for orthopedic fractures including left clavicle, left manubrium, left ribs, and pelvic fracture. Adequate pain control. * Right sciatic pain with corresponding foraminal stenosis seen on MRI. Increased gabapentin form 300 mg 3 times daily to 400 mg TID on 09/27/16. Increased tramadol from 50 mg Q 4 hours to 100 mg Q 6 hours on 09/27/16. Encourage ambulation. Will add Celebrex 100BID prn (given resolution of SDH, essentially no RESENDIZ-1 effects, and persistent GI effects from tramadol), much improved * Dry heaves today 09/28/16. Simplify meds: will change methocarbamol to PRN. Improved today 09/29/16. Tramadol is the most likely med to cause N/V but she reports she has tolerated it without problems currently and in the past. Head CT 09/28/16 shows SDH completely cleared, so central etiology of vomiting is very unlikely. Continue ondansetron PRN. * SDH. Follow-up with Dr. Nolasco today 09/30/16 at 11:20. * Osteoporosis. Adequate vitamin D supplementation on labs 09/24/16. Discussed initiating bisphosphonate; she prefers to discuss it with PCP. * Anxiety and posttraumatic stress disorder. She is not on any pharmacotherapy. She will be observed. She requested visits from her psychotherapist and she was informed that anyone is free to visit her whom she would like to see. Consider intervention by RAYON WINDER on the unit should her emotional state interfere with her ability to participate in therapy. * Anemia, improving on labs 09/24/16. PCP is Praveen Baron. Likely SNF discharge as she has no resources for assistance locally and daughter in [place] can't take care of her. Tentative discharge date 10/04/16. Subjective: No acute events. Sciatica much improved today following PT and Celebrex. Denies BROWN or weakness. Objective: Vital Signs Temp Pulse Resp BP Pulse Ox 36.4 C 66 16 107/68 96 10/02/16 07:52 10/02/16 07:52 10/02/16 07:52 10/02/16 07:52 10/02/16 07:52 Laboratory Results 09/24/16 06:00 09/24/16 06:00 10/01/16 10/02/16 10/03/16 05:59 05:59 05:59 Intake Total 720 1194 354 Output Total 40 400 Balance 680 794 354 - Pending Discharge Pending Discharge Within 24 Hours: No Pending Discharge Within 48 Hours: Yes Pending Discharge Date: 10/04/16 Pending Discharge Time: 11:00 Physical Exam - Physical Exam General Appearance: alert, no apparent distress Neck: supple Respiratory: lungs clear, normal breath sounds Cardiac/Chest: regular rate, rhythm Neuro/Psych: alert, normal mood/affect, oriented x 3 ICD10 Worksheet Patient Problems: Problems Problem Status Diagnosed Anemia due to blood loss, acute Acute Chest pain Acute Clavicle fracture Acute Fall (on) (from) other stairs and steps, initial encounter Acute Pelvis fracture Acute Rib fracture Acute Subdural hemorrhage Acute
[2016-10-02] MEDS: POLYETHYLENE GLYCOL 3350 17 GM PKT PO PRN (14:16)
[2016-10-02] MEDS: BISACODYL 10 MG SUPP PR PRN (16:25)
[2016-10-03] MEDS: ACETAMINOPHEN 325 MG TAB PO SCH ×3 (06:15→17:53)
[2016-10-03] MEDS: ONDANSETRON DISINTEGRATING 4 MG TAB PO PRN (07:37)
[2016-10-03] MEDS: POLYETHYLENE GLYCOL 3350 17 GM PKT PO SCH (08:22)
[2016-10-03] MEDS: GABAPENTIN 400 MG CAP PO SCH ×3 (08:22→20:40)
[2016-10-03] MEDS: CHOLECALCIFEROL VIT D3 2,000 UNITS TAB/CAP PO SCH (08:23)
[2016-10-03] MEDS: CALCIUM CARB W/VIT D 500 MG TAB PO SCH ×2 (08:23→20:40)
[2016-10-03] MEDS: LIDOCAINE 5% 1 EA PATCH TD SCH ×2 (10:24→20:40)
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
[2016-10-04] MEDS: ACETAMINOPHEN 325 MG TAB PO SCH ×4 (01:03→21:17)
[2016-10-04] MEDS: GABAPENTIN 400 MG CAP PO SCH ×3 (09:03→21:17)
[2016-10-04] MEDS: CALCIUM CARB W/VIT D 500 MG TAB PO SCH ×2 (09:03→21:39)
[2016-10-04] MEDS: CHOLECALCIFEROL VIT D3 2,000 UNITS TAB/CAP PO SCH (09:03)
[2016-10-04] MEDS: LIDOCAINE 5% 1 EA PATCH TD SCH ×2 (09:03→21:39)
[2016-10-04] MEDS: POLYETHYLENE GLYCOL 3350 17 GM PKT PO SCH (09:12)
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
[2016-10-05] MEDS: POLYETHYLENE GLYCOL 3350 17 GM PKT PO SCH (08:28)
[2016-10-05] MEDS: ACETAMINOPHEN 325 MG TAB PO SCH ×3 (08:29→22:11)
[2016-10-05] MEDS: CHOLECALCIFEROL VIT D3 2,000 UNITS TAB/CAP PO SCH (08:32)
[2016-10-05] MEDS: GABAPENTIN 400 MG CAP PO SCH ×3 (08:32→20:31)
[2016-10-05] MEDS: CALCIUM CARB W/VIT D 500 MG TAB PO SCH ×2 (08:32→20:32)
[2016-10-05] MEDS: LIDOCAINE 5% 1 EA PATCH TD SCH ×2 (11:21→22:12)
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
[2016-10-05 20:34] VITALS: RESP 16; TEMP 97.7
[2016-10-06 07:14] VITALS: BP 147/67; PULSE 96; O2SAT 98
[2016-10-06] MEDS: LIDOCAINE 5% 1 EA PATCH TD SCH (09:24)
[2016-10-06] MEDS: POLYETHYLENE GLYCOL 3350 17 GM PKT PO SCH (09:24)
[2016-10-06] MEDS: ACETAMINOPHEN 325 MG TAB PO SCH (09:24)
[2016-10-06] MEDS: CALCIUM CARB W/VIT D 500 MG TAB PO SCH (09:25)
[2016-10-06] MEDS: CHOLECALCIFEROL VIT D3 2,000 UNITS TAB/CAP PO SCH (09:25)
[2016-10-06] MEDS: GABAPENTIN 400 MG CAP PO SCH (09:25)
--- NOTE | 2016-10-07 13:03 | PDOREHIP ---
Admission [facility] - Admission - 3 Day Assessment Period Admission Date/Day 1: 09/23/16 Day 2: 09/24/16 Day 3: 09/25/16 Discharge [facility] - Discharge - 3 Day Assessment Period 2 Days Prior to Anticipated Discharge Date: 10/04/15 1 Day Prior to Anticipated Discharge Date: 10/05/15 Anticipated Discharge Date: 10/06/15 - Discharge Skin Conditions Unhealed Pressure Ulcer (1 or more/Stage 1 or >)-Discharge: 0. No
--- NOTE | 2016-10-07 13:49 | GDS ---
[f rep st] DISCHARGE SUMMARY ADMISSION DIAGNOSIS: Debility status post fall with subdural hematoma and multiple orthopedic fractu res. DISCHARGE DIAGNOSIS: Debility status post fall with subdural hematoma and multiple orthopedic fractu res. OTHER DISCHARGE DIAGNOSES: 1. Cognitive impairment. 2. Sciatica. 3. Osteoporosis. CONSULTATIONS: There were none. COMPLICATIONS: There were none. PROCEDURES: She had a repeat head CT done on 09/28/2016 which showed complete resolution of the subd ural hematoma. HISTORY AND HOSPITAL COURSE: The patient was initially admitted to [facility] on 09/05/2016. She had had an unwitnessed fall onto a concrete floor. She suffered a lef t frontal and temporal subdural hematoma, a left zygoma fracture, a left manubrium fracture, a left d istal clavicle fracture, left rib fractures of ribs 2 to 5, and a left iliac bone fracture. There wa s no need for surgery for the subdural hematoma. She was admitted to rehabilitation with nonweightbe aring status on the left upper extremity. Prior to her rehabilitation admission, she had been discha rged to [facility] until she had better pain control and activity tolerance to be able to comply with the 3 hours a day of therapy at the inpatient rehabilitation unit. She had considerable functional improvement during her stay. Her initial functional improvement rita ure (FIM) was 77 on 09/27/2016. This was consistent with usp level of care. By 10/04/2016, her FIM had increased to 94, which is consistent with her assisted living level of care. She was ab le to walk with a walking stick in her right hand. She was independent in her room and on the unit r egarding mobility and activities of daily living. She did a kitchen task, but was noted to have decr eased safety awareness, dropping her trekking pole which was she was using that day. She had cognitive impairment with mild word-finding difficulty and moderate deficits to executive fun ction. These issues were addressed by Speech and Language Pathology. She had rapid improvement in the pain from her orthopedic fractures. However, she had right sciatic pain which was quite limiting. She had had an MRI during her hospitalization (or some time previousl y) which showed for foraminal stenosis bilaterally, but certainly sufficient to account for her sciat ic pain on the right. She was treated with gabapentin which was titrated to 400 mg t.i.d. She was t reated with tramadol which causes her constipation and nausea and dry heaves. Celecoxib was institut ed and she had quite a good response. The tramadol was discontinued. Chart review revealed a history of osteoporosis. A vitamin D level was checked and she had adequate vitamin D supplementation. Initiation of bisphosphonate therapy was discussed with the patient and s he reported she would prefer to discuss it with her primary care provider. LABORATORY DATA: Other labs and studies during her stay: 1. On 09/24/2016 she had anemia with a hemoglobin of 11 and a hematocrit of 34.1. Her white blood c ell count was slightly low at 3.39 (with the lower limit of normal being 3.8). 2. Serum chemistry revealed normal renal function, electrolytes and liver function, other than an el evated alkaline phosphatase at 222. Her vitamin D level was 58.3. 3. PTH was checked due to her history of osteoporosis and it was within normal limits. DISCHARGE CONDITION: Good. ACTIVITY: Ad alfie, but she is to continue nonweightbearing with the left upper extremity. DIET: Regular. DATE OF NEXT APPOINTMENT: 1. She is following up with orthopedic surgeon, Dr. Aldridge, within 1-2 weeks of discharge. 2. She should follow up with primary care provider, Cathie Baron, within 1-2 weeks of discharge. DISCHARGE MEDICATIONS: 1. Celecoxib 100 mg p.o. b.i.d. p.r.n. 2. Polyethylene glycol 17 g p.o. daily. 3. Gabapentin 400 mg p.o. t.i.d. 4. Cholecalciferol 2000 units p.o. daily. 5. Calcium with vitamin D 500 mg p.o. b.i.d. 6. Acetaminophen 650 mg p.o. q.6 hours. ISSUES TO BE ADDRESSED AT FOLLOWUP: 1. Functional status: She will continue physical and occupational therapy at home and she can follo w up regarding functional status with her primary care provider as well. 2. Left manubrium and clavicle fractures with nonweightbearing on the left: She will follow up with orthopedic surgeon, Dr. Aldridge, regarding continuing weightbearing restrictions. 3. Osteoporosis show on DEXA scanning prior to her fall and reinforced by the fractures that she suf fered with her fall: Advise initiation of bisphosphonate therapy and she can follow up on this with her primary care provider. 4. Anemia: Expect this to resolve over time with normal nutrition. /[id number]/MODL
== END 2016-10-06 13:45 | disposition home or self-care (01) | DRG 945 ==
LOC: BREH 09-23 15:30
PROVIDERS: ADMIT Internal Medicine; ATTEND Internal Medicine
PROC: F0636ZZ Communicative/Cognitive Integration Skills Treatment of Neurological System - Whole Body (ICD-10-PCS; principal; 2016-09-23)
PROC: F07M3ZZ Motor Function Treatment of Musculoskeletal System - Whole Body (ICD-10-PCS; principal; 2016-09-23)
PROC: F08Z7ZZ Vocational Activities and Functional Community or Work Reintegration Skills Treatment (ICD-10-PCS; principal; 2016-09-23)
DX: S06.5X9D Traumatic subdural hemorrhage with loss of consciousness of unspecified duration, subsequent encounter (principal); S22.42XD Multiple fractures of ribs, left side, subsequent encounter for fracture with routine healing; S22.21XD Fracture of manubrium, subsequent encounter for fracture with routine healing; S32.392D Other fracture of left ilium, subsequent encounter for fracture with routine healing; S42.032D Displaced fracture of lateral end of left clavicle, subsequent encounter for fracture with routine healing; S02.40FD Zygomatic fracture, left side, subsequent encounter for fracture with routine healing; W19.XXXD Unspecified fall, subsequent encounter; Y92.9 Unspecified place or not applicable; Y99.8 Other external cause status; D62 Acute posthemorrhagic anemia; M54.31 Sciatica, right side; M48.07 Spinal stenosis, lumbosacral region; M81.0 Age-related osteoporosis without current pathological fracture; E55.9 Vitamin D deficiency, unspecified; E46 Unspecified protein-calorie malnutrition; F41.9 Anxiety disorder, unspecified; F43.10 Post-traumatic stress disorder, unspecified
CPT/HCPCS: 92507-GN; 92522-GN; 97001-GP; 97003-GO; 97110-GP; 97112-GP; 97116-GP; 97140-GP; 97530-GO; 97530-GP; 97532-GO; 97535-GO; G8978-GP-CK; G8979-GP-CI; J3301

== ENCOUNTER → 2017-02-01 | Outpatient (CLI) | payer OTHER | LOC: FIMAGING 08:23 | PROVIDERS: ATTEND Family Medicine | DX: Z13.820 Encounter for screening for osteoporosis (principal); M81.0 Age-related osteoporosis without current pathological fracture; Z78.0 Asymptomatic menopausal state; Z79.899 Other long term (current) drug therapy ==

== ENCOUNTER → 2017-02-07 | Outpatient (CLI) | payer OTHER | LOC: FIMAGING 09:08 | PROVIDERS: ATTEND Psychiatry & Neurology Neurology | DX: F09 Unspecified mental disorder due to known physiological condition (principal); F07.89 Other personality and behavioral disorders due to known physiological condition ==

== ENCOUNTER → 2017-03-15 | Outpatient (CLI) | payer OTHER | LOC: FIMAGING 13:04 | PROVIDERS: ATTEND Family Medicine | DX: Z12.31 Encounter for screening mammogram for malignant neoplasm of breast (principal); Z80.3 Family history of malignant neoplasm of breast; Z80.41 Family history of malignant neoplasm of ovary | CPT/HCPCS: G0202 ==

== ENCOUNTER → 2018-04-09 | Outpatient (CLI) | payer OTHER | LOC: FIMAGING 15:30 | PROVIDERS: ATTEND Family Medicine | DX: Z12.31 Encounter for screening mammogram for malignant neoplasm of breast (principal); Z80.3 Family history of malignant neoplasm of breast ==

== ENCOUNTER 2018-08-21 18:54 | Emergency (ER) | payer OTHER ==
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
[2018-08-21 19:09] VITALS: BP 133/89
== END 2018-08-21 20:29 | disposition home or self-care (01) ==
LOC: EDUNIT#
DX: F03.91 Unspecified dementia, unspecified severity, with behavioral disturbance (principal); Z79.899 Other long term (current) drug therapy